=== PATIENT | female | born 1965 | race American Indian/Alaskan Native ===

== ENCOUNTER 2022-03-29 08:48 | Day surgery (SDC) | payer OTHER ==
[2022-03-29] MEDS ORDERED: SODIUM CHLORIDE 0.9% 1000 ML 1,000 ML ONE (09:56)
--- NOTE | 2022-03-29 10:28 | Anesthesia Day of Surgery ---
Anesthesia Day of Surgery - Day of Surgery Patient Examined: Yes Patient H&P Reviewed: Yes Patient is NPO: Yes
--- NOTE | 2022-03-29 10:28 | Anesthesia Consultation ---
Anesthesia Consult and Med Hx Date of service: 03/29/22 - Airway Anesthetic Teeth Evaluation: Good, Dentures (upper) ROM Head & Neck: Adequate Mental/Hyoid Distance: Adequate Mallampati Class: Class III Intubation Access Assessment: Possibly Difficult - Pre-Operative Health Status ASA Pre-Surgery Classification: ASA2 Proposed Anesthetic Plan: MAC - Pulmonary Hx Smoking: No Hx Respiratory Symptoms: No - Cardiovascular System Hx Hypertension: Yes (took antihypertensives today) Hx Heart Attack/AMI: No Hx Percutaneous Transluminal Coronary Angioplasty (PTCA): No - Central Nervous System CVA: No - Endocrine Hx Renal Disease: No Hx Liver Disease: No Hx Insulin Dependent Diabetes: No Hx Non-Insulin Dependent Diabetes: No Hx Thyroid Disease: No - Additional Comments Anesthesia Medical History Comments: No hx anesthetic complications.
[2022-03-29] MEDS ORDERED: fentaNYL 100 MCG/2 ML INJ ONE (10:29)
[2022-03-29] MEDS ORDERED: ONDANSETRON 4 MG/2 ML INJ ONE (10:29)
[2022-03-29] MEDS ORDERED: propofoL 200 MG/20 ML VIAL IV ONE ×2 (10:30→10:45)
[2022-03-29] MEDS ORDERED: SODIUM CHLORIDE 0.9% 1000 ML 1,000 ML IV SCH (11:00)
--- NOTE | 2022-03-29 11:14 | Procedure Note ---
Date of procedure: 03/29/22 Pre-op diagnosis: Dyspepsia/ Colon Polyp Screening/ F/H/O Different types of Cancer Post-op diagnosis: other (Mild to Moderate Erosive Esophagitis/R/O Eosinophilic Esophagitis/ Gastric Erosion and Gastritis/ R/O Celiac disease/ No Colon Polyps noted/ Few, Left Colon Diverticuli/ No Internal Hemorrhoids) Procedure: EGD with Biopsy and Colonoscopy Anesthesia: MAC Surgeon: MIGUEL MAGANA Estimated blood loss: minimal Pathology: list Specimen disposition: to lab Condition: stable
--- NOTE | 2022-03-29 12:05 | Operative Report ---
DATE OF SURGERY: 03/29/2022 PROCEDURE PERFORMED: EGD with biopsy. INDICATIONS: This is a 56-year-old -[place] female with a strong family history of multiple types of cancers, recently had a knee replacement done and lately has been having some dyspeptic symptoms. EGD was done to make sure there was no significant upper GI pathology present. DESCRIPTION OF PROCEDURE: Procedure was done after getting informed consent with MAC anesthesia. The instrument was passed through the hypopharynx into the esophagus, which showed some [id number] distal erosive esophagitis. Photodocumentation and biopsy was done to assess for the severity of the erosive esophagitis. Biopsy was also done from the mid esophagus to rule out for eosinophilic esophagitis. Stomach showed antral gastritis and gastric erosion in the body of the stomach. Biopsy was done from the gastric antrum, gastric body and angular incisura to rule out for H. pylori and atrophic gastritis. The pylorus was patent. The duodenum in the first and second portion appeared normal. Biopsy was done from the second part to rule out for possible celiac disease. ASSESSMENT: Dyspepsia, family history of cancer including stomach cancer, gastritis, gastric erosion involving the gastric body, mild to moderate erosive esophagitis, rule out eosinophilic esophagitis, rule out celiac disease. PLAN: To have the patient avoid aspirin and aspirin-related products for the next few days, otherwise resume previous medication. Treat the patient with PPI and also encouraged the patient to take probiotics and have the patient follow up in the office in 1-2 weeks' time. A colonoscopy is also to be done as part of colon polyp screening. TID: [id number] RECEIPT: [id number] KIKO/HAYDEN
--- NOTE | 2022-03-29 12:16 | Operative Report ---
DATE OF SURGERY: 03/29/2022 PROCEDURE: Colonoscopy. INDICATIONS: This is a 56-year-old -[place] female with a strong family history of different types of cancer. She had an EGD done prior to the colonoscopy, which showed gastric erosion and gastritis, possibly secondary to NSAID use from a recent right knee replacement. In addition, she had mild to moderate erosive esophagitis. DESCRIPTION OF PROCEDURE: Colonoscopy was done after getting informed consent with MAC anesthesia. Initial rectal examination was unremarkable. The instrument was passed through the rectum onto the cecum, which was identified with ileocecal valve and appendiceal orifice. The cecum was also visualized on the retroverted view. No additional pathology was noted. The terminal ileum was intubated, showed normal mucosa. Cecum, ascending colon, transverse colon showed normal mucosa. There were a few diverticula noted in the left colon. The rectum did not show any internal hemorrhoid on the retroverted view. There was no bleeding associated with the colonoscopy and no complications associated with the procedure. ASSESSMENT: Colon polyp screening, family history of different types of cancer, a few left colon diverticula. No colon polyps noted. No internal hemorrhoids noted. Normal terminal ileal mucosa. PLAN: To encourage the patient to take fiber supplements. Treat the patient with PPI because of the EGD findings of gastric erosion and gastritis. Encouraged the patient to take probiotics and avoid aspirin and aspirin-related products for the next 5 days, otherwise resume home medication and follow up in the office in 1-2 weeks' time. Procedure was done in the GI lab with assistance of the GI lab team, which included the GI nurse, the pbx technician and with assistance of anesthesia. TID: [id number] RECEIPT: [id number] KIKO/DUTCH
[2022-03-29 13:13] VITALS: BP 150/89
--- NOTE | 2022-03-29 15:29 | Post Anesthesia Evaluation ---
- Post Anesthesia Evaluation Patient Participated: Yes Airway Patent: Yes Stable Respiratory Function: Yes Nausea/Vomiting: No Temp > 96.8F: Yes Pain Manageable: Yes Adequeate Hydration: Yes Anesthesia Complications: No
== END 2022-03-29 13:00 | disposition home or self-care (01) ==
LOC: GIO 08:48
DX: Z12.11 Encounter for screening for malignant neoplasm of colon (principal); R10.13 Epigastric pain; K57.30 Diverticulosis of large intestine without perforation or abscess without bleeding; I10 Essential (primary) hypertension; K31.89 Other diseases of stomach and duodenum; K21.00 Gastro-esophageal reflux disease with esophagitis, without bleeding; K29.70 Gastritis, unspecified, without bleeding; Z79.899 Other long term (current) drug therapy; Z80.0 Family history of malignant neoplasm of digestive organs; Z80.8 Family history of malignant neoplasm of other organs or systems; Z96.652 Presence of left artificial knee joint
CPT/HCPCS: 43239; 45378; 88305; 88342; J2405; J2704; J3010; J7030